=== PATIENT | female | born 1985 | race Hispanic/Latino ===

== ENCOUNTER 2018-10-04 14:45 | Emergency (ER) | payer MEDICAID ==
[2018-10-04] MEDS ORDERED: KETOROLAC TROMETHAMINE 60 MG/2 ML VIAL ONE (15:36)
[2018-10-04] MEDS ORDERED: ORPHENADRINE CITRATE 30 MG/ML ML ONE (15:36)
[2018-10-04 16:07] LABS: APPEARANCE,URINE Clear (CLEAR); BILIRUBIN,URINE Negative (NEGATIVE); COLOR,URINE Yellow (YELLOW); GLUCOSE, URINE (UA) >=1000 mg/dL (NEGATIVE); KETONES,URINE 15 mg/dL (NEGATIVE); LEUKOCYTE ESTERASE ,URINE Negative (NEGATIVE); NITRATE,URINE Negative (NEGATIVE); OCCULT BLOOD,URINE Negative (NEGATIVE); PROTEIN,URINE Negative (NEGATIVE)
[2018-10-04 16:24] LABS: BACTERIA,URINE Rare /HPF (None Seen); RBC,URINE None Seen /HPF (0-1); WBC,URINE 0-1 /HPF (0-1)
== END 2018-10-04 16:44 | disposition home or self-care (01) ==
LOC: EDH 14:45
DX: M54.40 Lumbago with sciatica, unspecified side (principal); E11.9 Type 2 diabetes mellitus without complications; F41.9 Anxiety disorder, unspecified; M19.90 Unspecified osteoarthritis, unspecified site; Z88.6 Allergy status to analgesic agent; Z88.8 Allergy status to other drugs, medicaments and biological substances
CPT/HCPCS: 81001; 81025; 96372 ×2; 99283; J1885; J2360

== ENCOUNTER 2020-02-04 08:16 | Emergency (ER) | payer MEDICAID, OTHER | END 2020-02-04 09:17 | disposition home or self-care (01) | LOC: EDH 08:16 | DX: H66.92 Otitis media, unspecified, left ear (principal); R50.9 Fever, unspecified; E11.9 Type 2 diabetes mellitus without complications; F41.9 Anxiety disorder, unspecified; M19.90 Unspecified osteoarthritis, unspecified site; Z87.891 Personal history of nicotine dependence; Z88.8 Allergy status to other drugs, medicaments and biological substances ==

== ENCOUNTER 2020-11-10 10:01 | Inpatient (IN) | payer SELFPAY ==
[~2020-11-10] VITALS: Ht 170.2 cm; Wt 79.6 kg
[2020-11-10 10:33] LABS: BASOPHILS % (AUTO) 0.4 % (0.0-5.0); HEMATOCRIT 41.3 % (36-48); LYMPHOCYTES % (AUTO) 7.8 % (21.0-51.0); MEAN CORPUSCULAR HEMOGLOBIN 27.1 pg (27.0-33.0); MEAN CORPUSCULAR VOLUME 84.8 fL (79-99); MONOCYTES % (AUTO) 4.4 % (3.0-13.0); NEUTROPHILS % (AUTO) 86.7 % (40.0-77.0); PLATELET COUNT (AUTO) 428 K/uL (130-400); RED BLOOD CELL COUNT(AUTO) 4.87 MIL/uL (4.00-5.50); RED CELL DISTRIBUTION WIDTH 14.5 % (11.0-15.5); WHITE BLOOD COUNT (AUTO) 23.2 K/uL (4.8-10.8)
[2020-11-10 10:46] LABS: ALBUMIN 2.6 g/dL (3.5-5.0); BILIRUBIN,TOTAL 0.5 mg/dL (0.2-1.0); TOTAL PROTEIN, SERUM 9.3 g/dL (6.0-8.3)
[2020-11-10 10:50] LABS: APPEARANCE,URINE Clear (CLEAR); BILIRUBIN,URINE Negative (NEGATIVE); COLOR,URINE Yellow (YELLOW); GLUCOSE, URINE (UA) >=1000 mg/dL (NEGATIVE); KETONES,URINE >=160 mg/dL (NEGATIVE); LEUKOCYTE ESTERASE ,URINE Negative (NEGATIVE); NITRATE,URINE Negative (NEGATIVE); OCCULT BLOOD,URINE Small (NEGATIVE); PROTEIN,URINE POS 2+ mg/dL (NEGATIVE); UROBILINOGEN,URINE 0.2 mg/dL (0.2-1.0)
[2020-11-10 10:52] LABS: HCG,QUAL RESULT NEGATIVE (NEGATIVE)
[2020-11-10 10:57] LABS: POTASSIUM 2.8 mmol/L (3.5-5.1)
[2020-11-10] MEDS ORDERED: SODIUM CHLORIDE 0.9% 1000ML 2,000 ML IV ONE (11:12)
[2020-11-10] MEDS ORDERED: ONDANSETRON HCL 4 MG/2 ML VIAL ONE ×2 (11:12→14:38)
[2020-11-10] MEDS ORDERED: FAMOTIDINE/PF 20 MG/2 ML VIAL IV ONE (11:13)
[2020-11-10] MEDS ORDERED: INSULIN HUMULIN R 100 UNIT/ML 3ML ONE ×2 (11:14→11:54)
[2020-11-10 11:27] LABS: BACTERIA,URINE Few /HPF (None Seen)
[2020-11-10] MEDS ORDERED: MORPHINE SULFATE 2 MG/ML 1ML SYG ONE ×2 (11:27→15:31)
[2020-11-10 11:28] LABS: MUCUS,URINE Moderate LPF (None Seen); SQUAMOUS EPITHELIAL CELL,UR Moderate /HPF (0-2)
[2020-11-10 11:41] LABS: ABG HCO3 4.9 mmol/L (21.0-28.0); ABG PCO2 15 mmHg (32-45)
[2020-11-10] MEDS ORDERED: POTASSIUM BICARB/CIT AC 25 MEQ TABLET.EFF ONE (11:52)
[2020-11-10] MEDS ORDERED: SODIUM CHLORIDE 0.9% 100 ML IV ONE (11:55)
[2020-11-10] MEDS: SODIUM CHLORIDE 0.9% 1000ML 1,000 ML IV SCH (12:45)
[2020-11-10] MEDS ORDERED: INSULIN REGULAR, HUMAN 3ML 100 UNIT in SODIUM CHLORIDE 0.9% 99 ML IV PRN ×2 (12:45)
[2020-11-10] MEDS: ZOSYN 3.375GM+NS 50ML 50 ML IV SCH ×2 (13:00→21:00)
[2020-11-10] MEDS ORDERED: SODIUM CHLORIDE 0.9% 1000ML 1,000 ML IV ONE (13:28)
[2020-11-10] MEDS ORDERED: ZOSYN 3.375GM+NS 50ML 50 ML IV ONE (13:28)
[2020-11-10 13:41] LABS: HEMOGLOBIN A1C 12.7 % (4.0-6.0)
[2020-11-10 13:42] LABS: HDL CHOLESTEROL 20 mg/dL (35-85); LDL DIRECT 145 mg/dL (0-99); TRIGLYCERIDES 1173 mg/dL (30-200)
[2020-11-10 14:06] LABS: CHOLESTEROL 527 mg/dL (<200)
[2020-11-10] MEDS: ONDANSETRON HCL 4 MG/2 ML VIAL IV PRN (18:02)
[2020-11-10 18:36] VITALS: BP 126/79
[2020-11-10 18:38] VITALS: BP 150/83
[2020-11-10] MEDS: MORPHINE SULFATE 2 MG/ML 1ML SYG IV PRN ×2 (19:23→23:02)
[2020-11-10 20:00] VITALS: BP 120/49
[2020-11-10 22:00] VITALS: BP 131/81
[2020-11-11] VITALS (9 sets, daily range): BP systolic 120–154; BP diastolic 54–90
[2020-11-11] MEDS: MORPHINE SULFATE 2 MG/ML 1ML SYG IV PRN ×4 (01:12→08:16)
[2020-11-11 04:56] LABS: BASOPHILS % (AUTO) 0.5 % (0.0-5.0); EOSINOPHILS % (AUTO) 0.2 % (0.0-8.0); HEMATOCRIT 35.1 % (36-48); LYMPHOCYTES % (AUTO) 6.7 % (21.0-51.0); MEAN CORPUSCULAR HEMOGLOBIN 26.5 pg (27.0-33.0); MEAN CORPUSCULAR HGB CONC 32.5 g/dL (32.0-36.0); MEAN CORPUSCULAR VOLUME 81.6 fL (79-99); MONOCYTES % (AUTO) 5.2 % (3.0-13.0); NEUTROPHILS % (AUTO) 86.7 % (40.0-77.0); PLATELET COUNT (AUTO) 303 K/uL (130-400); RED CELL DISTRIBUTION WIDTH 14.2 % (11.0-15.5); WHITE BLOOD COUNT (AUTO) 15.4 K/uL (4.8-10.8)
[2020-11-11] MEDS: ZOSYN 3.375GM+NS 50ML 50 ML IV SCH (05:11)
[2020-11-11 05:34] LABS: CREATININE 0.8 mg/dL (0.5-1.5)
[2020-11-11 05:50] LABS: POTASSIUM 2.7 mmol/L (3.5-5.1)
[2020-11-11 07:30] LABS: ABG BASE EXCESS -10.6 mmol/L (-2.0-3.0); ABG HCO3 13.8 mmol/L (21.0-28.0); ABG OXYGEN SATURATION 96.9 % (95.0-99.0); ABG PCO2 28 mmHg (32-45)
[2020-11-11 08:01] LABS: HEMATOCRIT 34.5 % (36-48); MEAN CORPUSCULAR HEMOGLOBIN 26.4 pg (27.0-33.0); MEAN CORPUSCULAR HGB CONC 32.5 g/dL (32.0-36.0); MEAN CORPUSCULAR VOLUME 81.2 fL (79-99); NUCLEATED RED BLOOD CELLS 0.1 % (0.0-0.19); RED BLOOD CELL COUNT(AUTO) 4.25 MIL/uL (4.00-5.50); RED CELL DISTRIBUTION WIDTH 14.3 % (11.0-15.5)
[2020-11-11 08:19] LABS: MAGNESIUM 1.9 mg/dL (1.80-2.40); PHOSPHORUS 1.3 mg/dL (2.5-4.9)
[2020-11-11 08:47] LABS: CREATININE 0.8 mg/dL (0.5-1.5)
[2020-11-11 08:53] LABS: POTASSIUM 2.4 mmol/L (3.5-5.1)
[2020-11-11] MEDS ORDERED: ENOXAPARIN SODIUM 30 MG/0.3 ML SQ SCH (09:00)
[2020-11-11] MEDS: POTASSIUM CHLORIDE 20 MEQ ERTAB PO SCH ×2 (09:43→14:30)
[2020-11-11] MEDS ORDERED: POTASSIUM PHOS 15 mMOL+NS250ML 250 ML IV PRN (10:00)
[2020-11-11 10:09] LABS: ALBUMIN 2.2 g/dL (3.5-5.0); BILIRUBIN,DIRECT 0.2 mg/dL (0.0-0.3); BILIRUBIN,TOTAL 0.5 mg/dL (0.2-1.0); TOTAL PROTEIN, SERUM 7.9 g/dL (6.0-8.3)
[2020-11-11] MEDS: MORPHINE SULFATE 2 MG/ML 1ML SYG IVP PRN ×2 (11:34→21:30)
[2020-11-11 13:22] LABS: CREATININE 0.7 mg/dL (0.5-1.5)
[2020-11-11 13:27] LABS: POTASSIUM 2.3 mmol/L (3.5-5.1)
[2020-11-11] MEDS ORDERED: POTASSIUM CHLORIDE 20 MEQ ERTAB PO SCH (15:50)
[2020-11-11] MEDS ORDERED: METF-446 PO (17:24)
[2020-11-11] MEDS ORDERED: GLYB2.5T5 PO (17:24)
[2020-11-11 18:14] LABS: CREATININE 0.7 mg/dL (0.5-1.5); POTASSIUM 3.2 mmol/L (3.5-5.1)
[2020-11-11] MEDS: SODIUM CHLORIDE 0.9% 1000ML 1,000 ML IV SCH ×2 (21:11→21:27)
[2020-11-11] MEDS: POTASSIUM CHLORIDE IV SCH ×2 (21:26→21:29)
[2020-11-11] MEDS: NACL IV SCH ×2 (21:26→21:29)
[2020-11-11] MEDS: FAMOTIDINE/PF 20 MG/2 ML VIAL IV SCH (21:26)
[2020-11-11] MEDS: DEXTROSE IV SCH ×2 (21:26→21:29)
[2020-11-11 22:36] LABS: CREATININE 0.6 mg/dL (0.5-1.5); POTASSIUM 3.3 mmol/L (3.5-5.1)
[2020-11-11] MEDS: POTASSIUM CHLORIDE 10MEQ/100ML 100 ML IV PRN (23:40)
[2020-11-12] VITALS (24 sets, daily range): BP systolic 95–153; BP diastolic 49–86
[2020-11-12] MEDS: POTASSIUM CHLORIDE 10MEQ/100ML 100 ML IV PRN (00:13)
[2020-11-12] MEDS: MORPHINE SULFATE 2 MG/ML 1ML SYG IVP PRN ×5 (00:13→20:21)
[2020-11-12 02:28] LABS: CREATININE 0.6 mg/dL (0.5-1.5); POTASSIUM 3.1 mmol/L (3.5-5.1)
[2020-11-12 03:03] LABS: ALBUMIN 1.8 g/dL (3.5-5.0); BILIRUBIN,DIRECT 0.3 mg/dL (0.0-0.3); BILIRUBIN,TOTAL 0.7 mg/dL (0.2-1.0); TOTAL PROTEIN, SERUM 6.8 g/dL (6.0-8.3)
[2020-11-12] MEDS ORDERED: POTASSIUM CHLORIDE 10MEQ/100ML 100 ML IV ONE ×2 (03:28)
[2020-11-12] MEDS ORDERED: POTASSIUM CHLORIDE 10MEQ/100ML 10 MEQ/100 ML ML IV SCH ×2 (03:30→08:45)
[2020-11-12] MEDS: DEXTROSE IV SCH (03:33)
[2020-11-12] MEDS: SODIUM CHLORIDE 0.9% 1000ML 1,000 ML IV SCH ×2 (03:33→10:31)
[2020-11-12] MEDS: NACL IV SCH (03:33)
[2020-11-12] MEDS: POTASSIUM CHLORIDE IV SCH (03:33)
[2020-11-12 05:55] LABS: BASOPHILS % (AUTO) 0.4 % (0.0-5.0); EOSINOPHILS % (AUTO) 0.2 % (0.0-8.0); HEMATOCRIT 27.1 % (36-48); LYMPHOCYTES % (AUTO) 7.6 % (21.0-51.0); MEAN CORPUSCULAR HEMOGLOBIN 26.9 pg (27.0-33.0); MEAN CORPUSCULAR HGB CONC 33.2 g/dL (32.0-36.0); MEAN CORPUSCULAR VOLUME 81.1 fL (79-99); NEUTROPHILS % (AUTO) 84.1 % (40.0-77.0); PLATELET COUNT (AUTO) 224 K/uL (130-400); RED BLOOD CELL COUNT(AUTO) 3.34 MIL/uL (4.00-5.50); RED CELL DISTRIBUTION WIDTH 14.6 % (11.0-15.5); WHITE BLOOD COUNT (AUTO) 11.7 K/uL (4.8-10.8)
[2020-11-12 07:24] LABS: CREATININE 0.5 mg/dL (0.5-1.5); MAGNESIUM 1.8 mg/dL (1.80-2.40); POTASSIUM 3.3 mmol/L (3.5-5.1)
[2020-11-12] MEDS ORDERED: POTASSIUM CHLORIDE 40 MEQ in DEXTROSE 5%-LACTATED RINGERS 980 ML IV SCH (07:45)
[2020-11-12] MEDS: FAMOTIDINE/PF 20 MG/2 ML VIAL IV SCH ×2 (08:25→20:14)
[2020-11-12] MEDS: ENOXAPARIN SODIUM 40 MG/0.4 ML SYRINGE SQ SCH (08:28)
[2020-11-12] MEDS ORDERED: POTASSIUM CHLORIDE 10MEQ/100ML 10 MEQ/100 ML ML IV PRN (08:45)
[2020-11-12] MEDS ORDERED: POTASSIUM CHLORIDE 20MEQ/100ML 100 ML IV PRN (08:45)
[2020-11-12] MEDS: ACETAMINOPHEN 325 MG TAB PO PRN ×2 (08:47→16:26)
[2020-11-12] MEDS ORDERED: POTASSIUM CHLORIDE 10MEQ/100ML 100 ML IV SCH (09:30)
[2020-11-12] MEDS: POTASSIUM CHLORIDE 20MEQ/100ML 100 ML IV SCH ×2 (09:34→12:14)
[2020-11-12 11:37] LABS: CREATININE 0.5 mg/dL (0.5-1.5)
[2020-11-12] MEDS: INSULIN GLARGINE 100 UNITS/ML 10 ML VIAL SQ SCH ×2 (11:41→20:21)
[2020-11-12 11:42] LABS: LIPASE 252 U/L (114-286); POTASSIUM 2.9 mmol/L (3.5-5.1); TRIGLYCERIDES 677 mg/dL (30-200)
[2020-11-12] MEDS ORDERED: POTASSIUM CHLORIDE 10% ELIXIR 20 MEQ/15 ML UDCUP ONE (12:48)
[2020-11-12] MEDS ORDERED: INSULIN HUMULIN R 100 UNIT/ML 3ML ONE (12:49)
[2020-11-12] MEDS: ONDANSETRON HCL 4 MG/2 ML VIAL IV PRN (13:05)
[2020-11-12] MEDS ORDERED: INSULIN HUMULIN R 100 UNIT/ML 3ML SQ SCH ×2 (15:20→16:30)
[2020-11-12 15:23] LABS: CREATININE 0.5 mg/dL (0.5-1.5); POTASSIUM 3.5 mmol/L (3.5-5.1)
[2020-11-12] MEDS: POTASSIUM CHLORIDE 10% ELIXIR 20 MEQ/15 ML UDCUP PO SCH ×2 (15:35→23:58)
[2020-11-12] MEDS: INSULIN HUMULIN R 100 UNIT/ML 3ML SQ SCH (20:25)
[2020-11-12 23:29] LABS: CREATININE 0.5 mg/dL (0.5-1.5)
[2020-11-12 23:36] LABS: POTASSIUM 2.9 mmol/L (3.5-5.1)
[2020-11-13] VITALS (12 sets, daily range): BP systolic 122–136; BP diastolic 46–87
[2020-11-13] MEDS: ACETAMINOPHEN 325 MG TAB PO PRN ×3 (00:03→20:59)
[2020-11-13] MEDS ORDERED: POTASSIUM CHLORIDE 20 MEQ ERTAB PO ONE ×3 (00:19→02:28)
[2020-11-13] MEDS ORDERED: POTASSIUM CHLORIDE 20 MEQ ERTAB PO PRN (02:15)
[2020-11-13 02:59] LABS: CREATININE 0.5 mg/dL (0.5-1.5)
[2020-11-13] MEDS: MORPHINE SULFATE 2 MG/ML 1ML SYG IVP PRN (05:11)
[2020-11-13] MEDS: POTASSIUM CHLORIDE 20 MEQ ERTAB PO PRN (06:27)
[2020-11-13] MEDS: INSULIN HUMULIN R 100 UNIT/ML 3ML SQ SCH ×7 (06:33→23:24)
[2020-11-13 07:30] LABS: CREATININE 0.5 mg/dL (0.5-1.5); POTASSIUM 3.3 mmol/L (3.5-5.1)
[2020-11-13] MEDS: ENOXAPARIN SODIUM 40 MG/0.4 ML SYRINGE SQ SCH (08:09)
[2020-11-13] MEDS: FAMOTIDINE/PF 20 MG/2 ML VIAL IV SCH ×2 (08:09→20:41)
[2020-11-13] MEDS: INSULIN GLARGINE 100 UNITS/ML 10 ML VIAL SQ SCH ×2 (08:12→23:21)
[2020-11-13 08:23] LABS: AMYLASE 8 U/L (25-115); LIPASE 186 U/L (114-286); TRIGLYCERIDES 481 mg/dL (30-200)
[2020-11-13] MEDS: NS-20 MEQ KCL 1000ML 1,000 ML IV SCH ×2 (11:15→20:00)
[2020-11-13] MEDS: FISH OIL 1000 MG/CAP PO SCH (20:42)
[2020-11-14 04:00] VITALS: BP 122/68
[2020-11-14] MEDS: INSULIN GLARGINE 100 UNITS/ML 10 ML VIAL SQ SCH ×2 (07:52→21:38)
[2020-11-14] MEDS: INSULIN HUMULIN R 100 UNIT/ML 3ML SQ SCH ×7 (07:54→21:00)
[2020-11-14 08:00] VITALS: BP 137/76
[2020-11-14] MEDS: FENOFIBRATE NANOCRYSTALLIZED 145 MG TAB PO SCH (08:04)
[2020-11-14] MEDS: FISH OIL 1000 MG/CAP PO SCH ×2 (08:04→21:27)
[2020-11-14] MEDS: FAMOTIDINE/PF 20 MG/2 ML VIAL IV SCH ×2 (08:04→21:27)
[2020-11-14] MEDS: ENOXAPARIN SODIUM 40 MG/0.4 ML SYRINGE SQ SCH (08:05)
[2020-11-14] MEDS: ACETAMINOPHEN 325 MG TAB PO PRN ×2 (08:20→18:36)
[2020-11-14 10:37] LABS: BASOPHILS % (AUTO) 0.6 % (0.0-5.0); EOSINOPHILS % (AUTO) 0.5 % (0.0-8.0); HEMATOCRIT 30.3 % (36-48); LYMPHOCYTES % (AUTO) 13.1 % (21.0-51.0); MEAN CORPUSCULAR HEMOGLOBIN 26.6 pg (27.0-33.0); MEAN CORPUSCULAR HGB CONC 33.7 g/dL (32.0-36.0); MEAN CORPUSCULAR VOLUME 79.1 fL (79-99); MONOCYTES % (AUTO) 6.8 % (3.0-13.0); NEUTROPHILS % (AUTO) 75.5 % (40.0-77.0); PLATELET COUNT (AUTO) 262 K/uL (130-400); RED BLOOD CELL COUNT(AUTO) 3.83 MIL/uL (4.00-5.50); RED CELL DISTRIBUTION WIDTH 14.4 % (11.0-15.5); WHITE BLOOD COUNT (AUTO) 12.9 K/uL (4.8-10.8)
[2020-11-14 10:57] LABS: ALBUMIN 1.8 g/dL (3.5-5.0); BILIRUBIN,TOTAL 0.5 mg/dL (0.2-1.0); CREATININE 0.4 mg/dL (0.5-1.5); TOTAL PROTEIN, SERUM 6.8 g/dL (6.0-8.3)
[2020-11-14 11:14] LABS: POTASSIUM 2.9 mmol/L (3.5-5.1)
[2020-11-14] MEDS ORDERED: POTASSIUM CHLORIDE 20MEQ/100ML 100 ML IV PRN (11:30)
[2020-11-14] MEDS ORDERED: LIDOCAINE HCL-MPF 1% 2ML VIAL IV PRN (11:30)
[2020-11-14] MEDS ORDERED: POTASSIUM CHLORIDE 10% ELIXIR 20 MEQ/15 ML UDCUP PO PRN (11:30)
[2020-11-14] MEDS: POTASSIUM CHLORIDE 20 MEQ ERTAB PO PRN ×2 (11:37→18:37)
[2020-11-14 12:06] VITALS: BP 132/69
[2020-11-14 16:00] VITALS: BP 129/75
[2020-11-14 20:00] VITALS: BP 125/67
[2020-11-15] VITALS: BP 121/70
[2020-11-15 04:00] VITALS: BP 112/58
[2020-11-15] MEDS: INSULIN HUMULIN R 100 UNIT/ML 3ML SQ SCH ×6 (06:24→17:22)
[2020-11-15 07:33] VITALS: BP 130/68
[2020-11-15] MEDS: POTASSIUM CHLORIDE 20 MEQ ERTAB PO PRN ×3 (08:17→16:00)
[2020-11-15] MEDS: ACETAMINOPHEN 325 MG TAB PO PRN ×2 (08:23→12:43)
[2020-11-15] MEDS: FENOFIBRATE NANOCRYSTALLIZED 145 MG TAB PO SCH (09:36)
[2020-11-15] MEDS: FISH OIL 1000 MG/CAP PO SCH (09:36)
[2020-11-15] MEDS: ENOXAPARIN SODIUM 40 MG/0.4 ML SYRINGE SQ SCH (09:38)
[2020-11-15] MEDS: INSULIN GLARGINE 100 UNITS/ML 10 ML VIAL SQ SCH (09:56)
[2020-11-15] MEDS: FAMOTIDINE/PF 20 MG/2 ML VIAL IV SCH (09:58)
[2020-11-15 11:59] VITALS: BP 125/78
[2020-11-15 16:23] VITALS: BP 119/55
== END 2020-11-15 18:05 | disposition home or self-care (01) | DRG 637 ==
LOC: EDH 10:01 → EDHIP 10:02 → UNDOADMIN 10:02 → EDHIP 10:03 → UNDOADMIN 12:39 → EDHIP 17:06 → 2DH 17:06 → 3CH 11-13 17:47 → WSH 11-15 06:55
PROVIDERS: ADMIT Internal Medicine; ATTEND Internal Medicine
DX: E11.10 Type 2 diabetes mellitus with ketoacidosis without coma (principal); K85.90 Acute pancreatitis without necrosis or infection, unspecified; K85.80 Other acute pancreatitis without necrosis or infection; E44.0 Moderate protein-calorie malnutrition; E87.1 Hypo-osmolality and hyponatremia; E87.6 Hypokalemia; D64.9 Anemia, unspecified; E66.9 Obesity, unspecified; E78.1 Pure hyperglyceridemia; E78.5 Hyperlipidemia, unspecified; E86.0 Dehydration; E86.1 Hypovolemia; K80.20 Calculus of gallbladder without cholecystitis without obstruction; F41.9 Anxiety disorder, unspecified; M19.90 Unspecified osteoarthritis, unspecified site; Z88.8 Allergy status to other drugs, medicaments and biological substances; Z68.27 Body mass index [BMI] 27.0-27.9, adult; Z79.4 Long term (current) use of insulin
CPT/HCPCS: 36415; 36600; 71045; 74176; 76705; 80048; 80053; 80061; 80076; 81001; 81025; 82010; 82150; 82465; 82803; 82948; 83036; 83690; 83735; 83930; 84100; 84132; 84145; 84478; 85025; 85027; 87040; 87088; 93970; G0378; J1650; J1815; J2405; J2543; J3480; J3490; J7030; J7042

== ENCOUNTER 2022-03-28 16:25 | Emergency (ER) | payer MEDICAID ==
[~2022-03-28] VITALS: Ht 170.2 cm; Wt 78.9 kg
[~2022-03-28 16:25] MED LIST: GLYB2.5T5 PO; METF-446 PO
[2022-03-28 16:48] LABS: APPEARANCE,URINE Clear (CLEAR); BILIRUBIN,URINE Negative (NEGATIVE); COLOR,URINE Yellow (YELLOW); GLUCOSE, URINE (UA) >=1000 mg/dL (NEGATIVE); KETONES,URINE 15 mg/dL (NEGATIVE); LEUKOCYTE ESTERASE ,URINE Negative (NEGATIVE); NITRATE,URINE Negative (NEGATIVE); OCCULT BLOOD,URINE Negative (NEGATIVE); PH,URINE 5.5 (5.0-8.0); PROTEIN,URINE Negative (NEGATIVE); UROBILINOGEN,URINE 0.2 mg/dL (0.2-1.0)
[2022-03-28 16:56] LABS: HCG,QUAL RESULT NEGATIVE (NEGATIVE)
[2022-03-28 17:05] LABS: BACTERIA,URINE Rare /HPF (None Seen); RBC,URINE 0-1 /HPF (0-1); WBC,URINE 0-1 /HPF (0-1)
[2022-03-28 17:06] LABS: SQUAMOUS EPITHELIAL CELL,UR Few /HPF (0-2)
[2022-03-28] MEDS ORDERED: DIAZ5TAB PO (18:24)
[2022-03-28] MEDS ORDERED: NAPR500T6 PO (18:24)
[2022-03-28] MEDS ORDERED: DIAZEPAM 5 MG TABLET PO ONE (18:30)
[2022-03-28] MEDS ORDERED: KETOROLAC 30MG VIAL (30MG/ML) IM ONE (18:30)
[2022-03-28 18:50] VITALS: BP 114/85
== END 2022-03-28 19:25 | disposition home or self-care (01) ==
LOC: EDH 16:25
DX: M54.42 Lumbago with sciatica, left side (principal); E11.69 Type 2 diabetes mellitus with other specified complication
CPT/HCPCS: 81001; 81025; 96372; 99283; J1885

== ENCOUNTER 2025-04-01 16:52 | Emergency (ER) | payer BC, MEDICAID ==
[~2025-04-01] VITALS: Ht 172.7 cm; Wt 67.1 kg
[~2025-04-01 16:52] MED LIST changes: +AZIT250T9 PO; +DIAZ5TAB PO; +KETO10TA2 PO; +NAPR-1506 PO
--- NOTE | 2025-04-01 17:22 | ERN ---
ED Note History of Present Illness Stated Complaint: EARACHE, FEVER, UTI Chief Complaint: Painful Urination Time Seen by MD: 16:55 Time Seen by Midlevel: 17:10 Dictation: PATIENT IS A 39-YEAR-OLD FEMALE COMING IN WITH SEVERAL COMPLAINTS 1ST COMPLAINT IS SHE HAS BODY ACHES FOR THE LAST 3-4 DAYS. NO FEVER NO CHILLS NO NAUSEA VOMITING NO LOSS OF TASTE OR SMELL. SECOND COMPLAINT IS RIGHT EAR PAIN WITH MUFFLED HEARING. THIRD COMPLAINT IS SHE HAS DYSURIA AND URINARY URGENCY AND FREQUENCY. NO PRIMARY CARE DOCTOR Allergies: Coded Allergies: cyclobenzaprine (Verified Allergy, Unknown, 11/10/20) dexamethasone (Verified Allergy, Unknown, 11/10/20) Home Meds Active Scripts Ketorolac Tromethamine (Ketorolac Tromethamine) 10 Mg Tablet, 10 MG PO BID for 5 Days, #10 TAB Prov:JOSE JACKMAN 06/12/24 Azithromycin (Azithromycin) 250 Mg Tablet, 250 MG PO DAILY for 5 Days, #5 TAB Prov:JOSE JACKMAN 06/12/24 Naproxen (Naproxen) 500 Mg Tablet.dr, 500 MG PO BIDPC, #15 TAB Prov:FADI WHITE 03/28/22 Diazepam (Valium) 5 Mg Tablet, 5 MG PO BID, #8 TAB Prov:FADI WHITEP 03/28/22 Reported Medications Glyburide (Glyburide) 2.5 Mg Tablet, 2.5 MG PO BID, TAB 11/11/20 Metformin HCl (Metformin HCl) 1,000 Mg Tablet, 1000 MG PO BIDMEALS, TAB 11/11/20 Past Medical History Past Medical History: Diabetes-Type II, Sciatica Additional Past Medical Hx: HERNIATED DISC Surgical History: Other History: Not Applicable LMP: Mar 17, 2025 RN Note Reviewed/Agreed w/PFSH: Yes Review of System Dictation CONSTITUTIONAL: NEGATIVE EXCEPT FOR HPI HEAD/FACE: NEGATIVE EXCEPT FOR HPI EENT: NEGATIVE EXCEPT FOR HPI RIGHT EAR PAIN MUFFLED HERE RESPIRATORY: NEGATIVE EXCEPT FOR HPI GASTROINTESTINAL/ABDOMINAL: NEGATIVE EXCEPT FOR HPI GENITOURINARY: NEGATIVE EXCEPT FOR HPI MUSCULOSKELETAL: NEGATIVE EXCEPT FOR HPI BODY ACHES INTEGUMENTARY: NEGATIVE EXCEPT FOR HPI NEUROLOGICAL/PSYCH: NEGATIVE EXCEPT FOR HPI HEMATOLOGIC/LYMPHATIC: NEGATIVE EXCEPT FOR HPI ALL SYSTEMS NEGATIVE, EXCEPT NOTED ABOVE. 13 POINT REVIEW OF SYSTEMS ASSESSED AND ALL NEGATIVE EXCEPT FOR ABOVE. Initial Vital Sign VS Vital Signs Date Time Temp Pulse Resp B/P (MAP) Pulse Ox O2 Delivery O2 Flow Rate FiO2 04/01/25 16:57 98.1 111 16 150/96 99 Room Air 0 04/01/25 19:54 21 Physical Exam Dictation VITAL SIGNS REVIEWED GENERAL APPEARANCE: ALERT, ORIENTED X 3, NO ACUTE DISTRESS, WELL DEVELOPED, NOURISHED. HEAD AND FACE: NON-TRAUMATIC. EYES: PERRL, PINK CONJUNCTIVAS, EYELID NO TRAUMA, ANTERIOR CHAMBER WITH ARCUS SENILIS. EARS: PINNAS INTACT AND NO SIGNS OF TRAUMA OR UNABLE TO VISUALIZE BILATERAL TM SECONDARY TO CERUMEN NEGATIVE MASTOID TENDERNESS BILATERALLY NOSE: NO DISCHARGE, NO BLEEDING. OROPHARYNX: MOUTH NORMAL, TONGUE PINK, PHARYNX CLEAR,NO ERYTHEMA, TONSILS NO EXUDATES, NO ABSCESSES NOTED, MUCOUS MEMBRANE MOIST NECK: SUPPLE, NON-TENDER, NO THYROMEGALY, NO MASSES, NO JVD, NO BRUITS BREAST:DEFERRED CHEST:NO TENDERNESS, NO CREPITUS, NO PARADOXICAL MOVEMENT, NO RETRACTIONS LUNGS:CLEAR, WELL-VENTILATED, SYMMETRIC, NO RALES, NO WHEEZING, NO RHONCHI, NO STRIDOR, GOOD BREATH SOUNDS BILATERALLY HEART: REGULAR RATE, REGULAR RHYTHM, NO MURMUR, NO GALLOPS VASCULAR: NO PERIPHERAL EDEMA, ABDOMEN: SOFT, POSITIVE BOWEL SOUNDS, NONDISTENDED, NO GUARDING, NONTENDER, NO REBOUND, NO MASSES NO HEPATOMEGALY, NO SPLENOMEGALY, NO COLON'S SIGN, NO HERNIAS. RECTAL: DEFERRED GENITAL: DEFERRED MILD SUPRAPUBIC TENDERNESS, PALPATED OVER HER CLOTHES. NEUROLOGICAL: NORMAL SPEECH, MOTOR FUNCTION INTACT, SENSORY FUNCTION INTACT MUSCULOSKELETAL: NECK NONTENDER, FULL RANGE OF MOTION, BACK NONTENDER, FULL RANGE OF MOTION, EXTREMITIES: NONTENDER, FULL RANGE OF MOTION SKIN: COLOR PINK, DRY, NO TURGOR, NO RASH, NO LACERATIONS, NO ABRASIONS, NO CONTUSIONS. LYMPHATIC: DEFERRED Results (Laboratory/Radiology) Laboratory/Radiology Laboratory Tests Test 04/01/25 17:59 04/01/25 18:54 Influenza Type A Antigen Negative For Type A Influenza Type B Antigen Negative For Type B SARS-CoV-2 Antigen (Rapid) PRESUMPTIVE NEGATIVE Group A Streptococcus Rapid negative (NEGATIVE) Urine Color COLORLESS (YELLOW) Urine Appearance CLEAR (CLEAR) Urine pH 6.0 (5.0-8.0) Urine Specific [place] 1.040 (1.001-1.031) Urine Protein NEGATIVE mg/dL (NEGATIVE) Urine Glucose (UA) >=1000 mg/dL (NEGATIVE) H Urine Ketones NEGATIVE mg/dL (NEGATIVE) Urine Occult Blood NEGATIVE (NEGATIVE) Urine Nitrate NEGATIVE (NEGATIVE) Urine Bilirubin NEGATIVE mg/dL (NEGATIVE) Urine Urobilinogen 0.2 mg/dL (0.2-1.0) Urine Leukocyte Esterase NEGATIVE Jose/uL Urine RBC 2-5 /HPF (0-1) H Urine WBC 0-1 /HPF (0-1) Urine Squamous Epithelial Cells RARE /HPF (0-2) Urine Bacteria None /HPF (None Seen) Urine HCG, Qualitative NEGATIVE (NEGATIVE) Labs Reviewed?: Yes ED Course ED Course Orders Procedure Category Date Status Time Urinalysis Profile LAB 04/01/25 Complete 17:16 ,Urine Test LAB 04/01/25 Complete 17:16 Covid19 (Sars Antigen LAB 04/01/25 Complete Rapid) 17:16 Influenza Type A & B, LAB 04/01/25 Complete Rapid 17:16 Rapid (Group A Strep) LAB 04/01/25 Complete 17:16 Vital Signs Date Time Temp Pulse Resp B/P (MAP) Pulse Ox O2 Delivery O2 Flow Rate FiO2 04/01/25 19:54 98.1 95 18 143/89 99 Room Air* 0 21 04/01/25 16:57 98.1 111 16 150/96 99 Room Air 0 2004/DISCUSSED CLINICAL FINDINGS WITH PATIENT AND MADE HER AWARE THAT THERE IS NO EVIDENCE OF A URINARY TRACT INFECTION CYSTITIS FLU STREP OR COVID. IN ADDITION SHE IS NOT SAID THE ONLY CONCERN SHE HAD SHE THOUGHT SHE MIGHT BE HAVING FEVER HOWEVER SHE DOES NOT HAVE ONE. I TOLD HER THAT SHE HAD CERUMEN IMPACTIONS BILATERALLY TO STOP AND GET AN EAR WAX REMOVAL KIT TO CLEAN THOSE OUT. REFERRED HER TO PRIMARY CARE DOCTOR Medical Decision Making MDM MEDICAL DECISION-MAKING BASED ON SWABS FOR FLU COVID AND STREP UA AND HCG FOR DYSURIA ALL ARE NEGATIVE PATIENT WAS DISCHARGED HOME SHE WAS HAVING SOME RIGHT EAR PAIN MADE AWARE SHE HAS A CERUMEN IMPACTIONS TO STOP Q-TIPS INTO BY A EAR WAX REMOVAL KIT. ALL QUESTIONS ANSWERED DX & DISP Disposition: Discharge Departure Impression: Primary Impression: Bilateral impacted cerumen Additional Impression: Dysuria Condition: Stable Additional Instructions: FOLLOW-UP WITH PRIMARY CARE PROVIDER IN 1 TO 2 DAYS. TAKE MEDICATIONS DIRECTED HERE IN THE EMERGENCY ROOM. OKAY TO CONTINUE HOME MEDICATIONS UNLESS OTHERWISE DISCUSSED DURING YOUR VISIT IN THE EMERGENCY ROOM TODAY. RETURN TO YOUR NEAREST EMERGENCY ROOM IF SYMPTOMS WORSEN OR IF THERE IS NO IMPROVEMENT. CALL 911 IF YOU NEED IMMEDIATE ASSISTANCE. TAKE TYLENOL OR MOTRIN [id number] NEEDED AND IF NO CONTRAINDICATIONS ARE PRESENT. INCREASE ORAL HYDRATION. A WOUND CULTURE OR URINE CULTURE WAS ORDERED HERE IN THE EMERGENCY ROOM DEPARTMENT PLEASE FOLLOW-UP WITH PRIMARY CARE PROVIDER AND ADVISE THEM TO GET REPEAT PORTS FROM OUR FACILITY. IF YOU HAD ANY REINIER WRAP/SPLINTS THAT WERE APPLIED HERE, PLEASE DO NOT REMOVE THEM UNTIL YOU SEE YOUR PRIMARY CARE OR SPECIALTY. BUY AN EAR WAX REMOVAL KIT AND USE DIRECTED. NO Q-TIPS IN EARS AND FOLLOW UP WITH YOUR PRIMARY CARE DOCTOR IN THE NEXT 1-2 DAYS. Referrals: SELF,REFERRAL (PCP) Time of Disposition: 20:06 I have reviewed the case, and I agree with, Diagnosis and Plan ALEKSANDR FUNES NP Apr 01, 2025 17:22
[2025-04-01 18:22] LABS: RAPID GROUP A STREP negative (NEGATIVE)
[2025-04-01 18:32] LABS: COVID19 (SARS ANTIGEN RAPID) PRESUMPTIVE NEGATIVE (NEGATIVE); INFLUENZA TYPE A Negative For Type A (NEGATIVE); INFLUENZA TYPE B Negative For Type B (NEGATIVE)
[2025-04-01 19:37] LABS: HCG,QUALITATIVE URINE NEGATIVE (NEGATIVE)
[2025-04-01 19:40] LABS: ADD UA MICROSCOPIC YES; APPEARANCE,URINE CLEAR (CLEAR); BILIRUBIN,URINE NEGATIVE (NEGATIVE); COLOR,URINE COLORLESS (YELLOW); GLUCOSE, URINE (UA) >=1000 mg/dL (NEGATIVE); KETONES,URINE NEGATIVE (NEGATIVE); LEUKOCYTE ESTERASE ,URINE NEGATIVE Leu/uL (NEGATIVE); NITRATE,URINE NEGATIVE (NEGATIVE); OCCULT BLOOD,URINE NEGATIVE (NEGATIVE); PROTEIN,URINE NEGATIVE (NEGATIVE); UROBILINOGEN,URINE 0.2 mg/dL (0.2-1.0)
[2025-04-01 19:43] LABS: SQUAMOUS EPITHELIAL CELL,UR RARE /HPF (0-2); WBC,URINE 0-1 /HPF (0-1)
[2025-04-01 19:54] VITALS: BP 143/89; PULSE 95; RESP 18; TEMP 98.1; O2SAT 99
== END 2025-04-01 20:34 | disposition home or self-care (01) ==
LOC: EDH 16:52
DX: H61.23 Impacted cerumen, bilateral (principal); R30.0 Dysuria; E11.9 Type 2 diabetes mellitus without complications; Z79.84 Long term (current) use of oral hypoglycemic drugs; Z20.822 Contact with and (suspected) exposure to COVID-19
CPT/HCPCS: 81001; 81025; 87426; 87804; 87880; 99283